=== PATIENT | male | born 1970 | race Caucasian/White ===

== ENCOUNTER 2018-07-13 15:01 | Emergency (ER) | payer MEDICAID ==
[~2018-07-13] VITALS: Ht 177.8 cm; Wt 65.8 kg
[2018-07-13 15:22] VITALS: Ht 177.8 cm; Wt 65.8 kg
[2018-07-13 17:08] VITALS: BP 128/80
== END 2018-07-13 17:08 | disposition home or self-care (01) ==
LOC: ED 15:01
DX: S01.112A Laceration without foreign body of left eyelid and periocular area, initial encounter (principal); S01.111A Laceration without foreign body of right eyelid and periocular area, initial encounter; S00.93XA Contusion of unspecified part of head, initial encounter; F41.9 Anxiety disorder, unspecified; Z88.8 Allergy status to other drugs, medicaments and biological substances; Y04.8XXA Assault by other bodily force, initial encounter; Y93.89 Activity, other specified; Y92.89 Other specified places as the place of occurrence of the external cause; Y99.8 Other external cause status

== ENCOUNTER 2018-07-14 09:02 | Emergency (ER) | payer MEDICAID ==
[~2018-07-14] VITALS: Ht 175.3 cm; Wt 65.3 kg
[2018-07-14 09:06] VITALS: BP 131/91; Ht 175.3 cm; Wt 65.3 kg
== END 2018-07-14 09:42 | disposition home or self-care (01) ==
LOC: ED 09:02
DX: S22.39XD Fracture of one rib, unspecified side, subsequent encounter for fracture with routine healing (principal); S01.112D Laceration without foreign body of left eyelid and periocular area, subsequent encounter; Z88.8 Allergy status to other drugs, medicaments and biological substances; Z98.890 Other specified postprocedural states; Y04.0XXD Assault by unarmed brawl or fight, subsequent encounter

== ENCOUNTER 2018-07-16 15:55 | Emergency (ER) | payer MEDICAID ==
[~2018-07-16] VITALS: Ht 175.3 cm; Wt 65.8 kg
[2018-07-16 16:13] VITALS: Ht 175.3 cm; Wt 65.8 kg
[2018-07-16 16:49] VITALS: BP 126/87
== END 2018-07-16 16:49 | disposition home or self-care (01) ==
LOC: ED 15:55
DX: S01.112D Laceration without foreign body of left eyelid and periocular area, subsequent encounter (principal); S01.111D Laceration without foreign body of right eyelid and periocular area, subsequent encounter; F41.9 Anxiety disorder, unspecified; Z88.8 Allergy status to other drugs, medicaments and biological substances; X58.XXXD Exposure to other specified factors, subsequent encounter

== ENCOUNTER 2018-07-19 10:16 | Emergency (ER) | payer MEDICAID ==
[~2018-07-19] VITALS: Ht 175.3 cm; Wt 68.0 kg
[2018-07-19 10:19] VITALS: Ht 175.3 cm; Wt 68.0 kg
[2018-07-19 10:44] VITALS: BP 117/87
== END 2018-07-19 10:44 | disposition home or self-care (01) ==
LOC: ED 10:16
DX: S01.112D Laceration without foreign body of left eyelid and periocular area, subsequent encounter (principal); S01.111D Laceration without foreign body of right eyelid and periocular area, subsequent encounter; F41.9 Anxiety disorder, unspecified; Z88.8 Allergy status to other drugs, medicaments and biological substances; Y08.89XD Assault by other specified means, subsequent encounter